=== PATIENT | male | born 1970 | race Caucasian/White ===

== ENCOUNTER → 2018-06-27 | Outpatient (CLI) | payer OTHER ==
[~2018-06-27] MED LIST: AMLO5TAB7 PO; HYDR12.53 PO; LISI40TA PO; LOSA100T7 PO
[2018-06-27 10:33] LABS: BASOPHILS # (AUTO) 0.02 x10^3/uL (0-0.1); BASOPHILS % (AUTO) 0 % (0-1); EOSINOPHILS # (AUTO) 0.03 x10^3/uL (0-0.4); EOSINOPHILS % (AUTO) 1 % (1-7); LYMPHOCYTES # (AUTO) 1.71 x10^3/uL (1-3.4); LYMPHOCYTES % (AUTO) 29 % (22-44); MD NO; MEAN CORPUSCULAR HEMOGLOBIN 32.2 pg (27.5-34.5); MEAN CORPUSCULAR HGB CONC 34.1 g/dL (33.2-36.2); MEAN CORPUSCULAR VOLUME 94.4 fL (81-97); MEAN PLATELET VOLUME 9.8 fL (7.4-10.4); MONOCYTES # (AUTO) 0.56 x10^3/uL (0.2-0.8); MONOCYTES % (AUTO) 9 % (2-9); NEUTROPHILS # (AUTO) 3.59 x10^3/uL (1.8-6.8); NEUTROPHILS % (AUTO) 61 % (42-75); PLATELET COUNT 172 x10^3/uL (130-400); RED BLOOD COUNT 5.34 x10^6/uL (4.38-5.82); RED CELL DISTRIBUTION WIDTH 13.5 % (9.4-14.8)
[2018-06-27 10:36] LABS: MICROSCOPIC AUTO
[2018-06-27 10:37] LABS: CULTURE INDICATED? NO
[2018-06-27 10:40] LABS: INTERNATIONAL NORMALIZED RATIO 1.02 (0.93-1.1); PROTHROMBIN TIME 10.6 Seconds (9.6-11.5)
[2018-06-27 10:45] LABS: CHLORIDE 109 mmol/L (98-107)
[2018-06-27 10:52] LABS: ALANINE AMINOTRANSFERASE 33 U/L (12-78); ALBUMIN 3.9 g/dL (3.4-5.0); ALKALINE PHOSPHATASE 111 U/L (45-117); ANION GAP 8 mmol/L (5-15); BILIRUBIN,TOTAL 0.5 mg/dL (0.2-1.0); CALCIUM 8.6 mg/dL (8.5-10.1); CREATININE 1.16 mg/dL (0.7-1.3); TOTAL PROTEIN 7.9 g/dL (6.4-8.2)
== END | disposition home or self-care (01) ==
LOC: STAR 09:31
PROVIDERS: ATTEND Orthopaedic Surgery
DX: Z01.818 Encounter for other preprocedural examination (principal); M17.11 Unilateral primary osteoarthritis, right knee; M25.561 Pain in right knee
CPT/HCPCS: 36415; 80053; 81001; 83036; 85025; 85610; 85730; 87081; 87806; 93005; G0475

== ENCOUNTER 2018-07-07 06:36 | Observation (INO) | payer OTHER ==
[~2018-07-07] VITALS: Ht 203.2 cm; Wt 135.9 kg
[2018-07-07] MEDS ORDERED: GABAPENTIN 300 MG CAPSULE PO ONE (07:30)
[2018-07-07] MEDS ORDERED: LACTATED RINGERS 1,000 ML IV SCH (07:47)
[2018-07-07] MEDS ORDERED: MIDAZOLAM 1 MG/ML, 2ML ONE (08:13)
[2018-07-07] MEDS ORDERED: FENTANYL PF 250 MCG/5ML ONE (08:14)
[2018-07-07] MEDS ORDERED: BISACODYL 10 MG SUPP PR PRN (09:00)
[2018-07-07] MEDS ORDERED: ONDANSETRON 2MG/ML, 2ML IV PRN ×2 (09:00→10:00)
[2018-07-07] MEDS ORDERED: SENNA/DOCUSATE TABLET PO PRN (09:00)
[2018-07-07] MEDS: D5%-0.45NACL+KCL 20MEQ 1,000 ML IV SCH ×2 (09:00→15:40)
[2018-07-07] MEDS ORDERED: KETOROLAC 60 MG/2 ML ONE (09:00)
[2018-07-07] MEDS ORDERED: PROMETHAZINE 12.5 MG SUPP PR PRN (09:00)
[2018-07-07] MEDS ORDERED: ACETAMINOPHEN 650 MG/20.3 ML UDC PO PRN (09:00)
[2018-07-07] MEDS ORDERED: PROMETHAZINE 25 MG/ML, 1ML IM PRN (09:00)
[2018-07-07] MEDS ORDERED: DOCUSATE 100 MG CAPSULE PO SCH (09:00)
[2018-07-07] MEDS ORDERED: TRANEXAMIC ACID 100 MG/ML, 10ML ONE ×4 (09:00)
[2018-07-07] MEDS ORDERED: ONDANSETRON 4 MG TABLET PO PRN (09:00)
[2018-07-07] MEDS ORDERED: MAGNESIUM HYDROXIDE 8%, 30ML UDC PO PRN (09:00)
[2018-07-07] MEDS ORDERED: DIPHENHYDRAMINE 25 MG CAPSULE PO PRN (09:00)
[2018-07-07] MEDS ORDERED: HYDROmorphone 2 MG/ML, 1ML IV PRN (09:00)
[2018-07-07] MEDS ORDERED: OXYcodone IR 5MG TABLET PO PRN (09:00)
[2018-07-07] MEDS ORDERED: ROPIvacaine/PF 0.2%, 20 ML ONE (09:01)
[2018-07-07] MEDS ORDERED: SODIUM CHLORIDE 0.9% 100 ML ONE (09:01)
[2018-07-07] MEDS ORDERED: EPINEPHRINE 1 MG/ML, 1ML ONE (09:01)
[2018-07-07] MEDS ORDERED: LABETALOL 5MG/ML, 20ML ONE (09:57)
[2018-07-07] MEDS ORDERED: hydrALAzine 20 MG/ML, 1ML ONE (09:57)
[2018-07-07] MEDS ORDERED: LABETALOL 5MG/ML, 20ML IV PRN (10:00)
[2018-07-07] MEDS ORDERED: KETOROLAC 30 MG/1 ML IV PRN (10:00)
[2018-07-07] MEDS ORDERED: ALBUTEROL/IPRATROPIUM 2.5MG/0.5MG, 3 ML NPPB PRN (10:00)
[2018-07-07] MEDS ORDERED: SCOPOLAMINE PATCH, 1.5MG PATCH.TD72 TD PRN (10:00)
[2018-07-07] MEDS ORDERED: PROMETHAZINE 25 MG/ML, 1ML IV PRN (10:00)
[2018-07-07] MEDS ORDERED: MEPERIDINE/PF 25MG/0.5ML IVPush PRN (10:00)
[2018-07-07] MEDS ORDERED: DIAZEPAM 5 MG/ML, 2ML IVPush PRN (10:00)
[2018-07-07] MEDS ORDERED: HYDROmorphone 1 MG/ML, 1ML IV PRN (10:00)
[2018-07-07] MEDS ORDERED: MIDAZOLAM 1 MG/ML, 2ML IV PRN (10:00)
[2018-07-07] MEDS ORDERED: OXYcodone 5 MG/5 ML ORAL.SOL UDC PO PRN (10:00)
[2018-07-07] MEDS ORDERED: hydrALAzine 20 MG/ML, 1ML IV PRN (10:00)
[2018-07-07] MEDS ORDERED: HYDROmorphone 2 MG/ML, 1ML ONE ×2 (10:05→11:36)
[2018-07-07] MEDS ORDERED: PROPOFOL 10 MG/ML, 20ML ONE (10:09)
[2018-07-07] MEDS ORDERED: ONDANSETRON 2MG/ML, 2ML ONE (10:09)
[2018-07-07] MEDS ORDERED: LIDOCAINE-MPF 2% ,5ML ONE (10:09)
[2018-07-07] MEDS ORDERED: BUPIVACAINE/PF 0.5% ONE (10:09)
[2018-07-07] MEDS ORDERED: DEXAMETHASONE 4 MG/ML, 1ML ONE (10:09)
[2018-07-07] MEDS ORDERED: CEFAZOLIN 1,000 MG ONE (10:09)
[2018-07-07] MEDS ORDERED: EPHEDRINE 50 MG/ML, 1ML ONE (11:12)
[2018-07-07] MEDS ORDERED: TRANEXAMIC ACID 1,000 MG in SODIUM CHLORIDE 0.9% 100 ML IVPB ONE (11:28)
[2018-07-07] MEDS ORDERED: FENTANYL PF 100 MCG/2ML ONE (11:30)
[2018-07-07] MEDS ORDERED: OXYcodone 5 MG/5 ML ORAL.SOL UDC ONE ×2 (11:30→11:36)
[2018-07-07] MEDS ORDERED: EPHEDRINE 50 MG/ML, 1ML IVPush PRN (11:30)
[2018-07-07] MEDS: FENTANYL PF 100 MCG/2ML IV PRN ×2 (11:31→11:36)
[2018-07-07 12:50] VITALS: BP 133/97
[2018-07-07 14:14] VITALS: BP 127/79
[2018-07-07 15:40] VITALS: BP 140/94
[2018-07-07] MEDS ORDERED: ASPIRIN 81 MG TABLET EC PO SCH (18:00)
[2018-07-07] MEDS ORDERED: CEFAZOLIN PMX 1GM/50ML 50 ML IVPB SCH (18:00)
[2018-07-08] MEDS ORDERED: DEXAMETHASONE 4 MG/ML, 1ML IVPush SCH (06:00)
[2018-07-08] MEDS ORDERED: LOSARTAN 50MG TABLET PO SCH (09:00)
[2018-07-08] MEDS ORDERED: AMLODIPINE 5 MG TABLET PO SCH (09:00)
[2018-07-08] MEDS ORDERED: KETOROLAC 30 MG/1 ML IV SCH (09:00)
[2018-07-08] MEDS ORDERED: LISINOPRIL 20 MG TABLET PO SCH (09:00)
[2018-07-08] MEDS ORDERED: HYDROCHLOROTHIAZIDE 25 MG TABLET PO SCH (09:00)
== END 2018-07-07 17:20 | disposition home or self-care (01) ==
LOC: OUT 06:36 → ORIP 09:00 → 4NOR 12:50
PROVIDERS: ADMIT Orthopaedic Surgery; ATTEND Orthopaedic Surgery
DX: M17.11 Unilateral primary osteoarthritis, right knee (principal)
CPT/HCPCS: 27447; 73560; 97161; C1713; C1776; G0378; G8978; G8979; G8980; J0171; J0360; J0690; J1100; J1170; J1885; J2250; J2405; J2704; J2795; J3010; J3490; J7120